=== PATIENT | male | born 1955 | race Caucasian/White ===

== ENCOUNTER 2018-02-23 07:17 | Day surgery (SDC) | payer BC ==
[~2018-02-23] VITALS: Ht 188 cm; Wt 104.3 kg
[2018-02-23] MEDS ORDERED: LACTATED RINGERS 1,000 ML IV STA (07:25)
[2018-02-23] MEDS ORDERED: LACTATED RINGERS 1,000 ML IV ONE (07:26)
[2018-02-23 07:38] VITALS: BP 149/90
[2018-02-23] MEDS ORDERED: MIDAZOLAM 2 MG/2 ML (VERSED) VIAL ONE (07:59)
[2018-02-23] MEDS ORDERED: PROPOFOL INJECTION 50 ML IV ONE (07:59)
--- NOTE | 2018-02-23 09:40 | Progress Note-Post Operative ---
Post-Operative Progess Note Surgeon (s)/Administrative Assistant Coordinator (s) Surgeon ARELI OLIVEROS DO Administrative Assistant Coordinator: na Pre-Operative Diagnosis screening colonoscopy Post-Operative Diagnosis diverticulosis Procedure & Operative Findings Date of Procedure 02/23/18 Procedure Performed/Findings colonoscopy Anesthesia Type per automotive worker foreman Estimated Blood Loss Estimated blood loss (mL): none Specimens/Packing Specimens Removed na ARELI OLIVEROS DO Feb 23, 2018 09:40
--- NOTE | 2018-02-23 09:43 | Discharge Inst-Simple/Standard ---
Discharge Inst-Standard Patient Instructions/Follow Up Plan of Care/Instructions/FU: repeat colonoscopy in 10 years, any issues before that be reevaluated at that time. Activity as Tolerated: Yes Discharge Diet: Regular Diet (high fiber) ARELI OLIVEROS DO Feb 23, 2018 09:43
[2018-02-23 09:55] VITALS: BP 114/62
[2018-02-23 10:20] VITALS: BP 129/96
--- NOTE | 2018-02-23 18:14 | OPERATIVE REPORT ---
DATE OF SERVICE: 02/23/2018 PREOPERATIVE DIAGNOSIS: Screening colonoscopy. POSTOPERATIVE DIAGNOSIS: Diverticulosis. PROCEDURE: Colonoscopy. SURGEON: Areli Mesa DO ANESTHESIA: Per DISABILITY LIAISON OFFICER. ESTIMATED BLOOD LOSS: None. COMPLICATIONS: None. INDICATIONS: The patient is a 62-year-old male due for screening colonoscopy. He understands risks and benefits of the procedure and wished to proceed with the procedure. Consent was signed on the chart. DESCRIPTION OF PROCEDURE: The patient was taken to the endoscopy suite, placed in left lateral recumbent position. Timeout was performed. Digital rectal exam was performed. There were no palpable polyps, masses or ulcerations. The scope was inserted in the rectum and advanced all the way to the cecum with minimal difficulty. Prep was adequate. The scope was then slowly retracted back. There were no polyps, masses or ulcerations within the cecum, ascending, transverse, descending and sigmoid colon. From the transverse colon down to the sigmoid colon, there was a moderate amount of diverticulosis present. Scope once in the rectum was also retroflexed noting no other pathology. The scope was returned to its normal position, slowly withdrawn until completely removed. The patient tolerated the procedure well without any complications and was taken to the recovery room in stable condition. RECOMMENDATIONS: Due to diverticulosis, we would recommend high-fiber diet. He will need a repeat colonoscopy in 10 years unless he has family history of colon cancer or personal history of polyps, which would then be 5 years. If he has any problems prior to that, he should be reevaluated at that time. Job ID: [id number] DocumentID: [id number] Dictated Date: 02/23/2018 09:46:09 Engagement Engineer Date: 02/23/2018 14:49:55 Dictated By: ARELI MESA DO
== END 2018-02-23 10:20 | disposition home or self-care (01) ==
LOC: ENDO 07:17
PROVIDERS: ATTEND Surgery
DX: Z12.11 Encounter for screening for malignant neoplasm of colon (principal); K57.30 Diverticulosis of large intestine without perforation or abscess without bleeding

== ENCOUNTER 2023-01-20 05:28 | Outpatient (CLI) | payer BC ==
[~2023-01-20] VITALS: Ht 182.9 cm; Wt 94.8 kg
[2023-01-20] MEDS ORDERED: ROSU5TAB13 PO (08:15)
[2023-01-20] MEDS ORDERED: LISI20TA26 PO (08:15)
[2023-01-21] MEDS ORDERED: ACHD5005 PO (10:46)
== END 2023-01-20 08:37 | disposition home or self-care (01) ==
LOC: PREOP 05:28
PROVIDERS: ATTEND Surgery
DX: Z01.818 Encounter for other preprocedural examination (principal)

== ENCOUNTER 2023-01-21 08:07 | Day surgery (SDC) | payer BC ==
[~2023-01-21] VITALS: Ht 182.9 cm; Wt 94.8 kg
[2023-01-21] VITALS (8 sets, daily range): BP systolic 114–130; BP diastolic 64–83
[~2023-01-21 08:07] MED LIST: LACTATED RINGERS 1,000 ML IV PRN; LISI20TA26 PO; ROSU5TAB13 PO
[2023-01-21] MEDS ORDERED: ceFAZolin INJECTION 2,000 MG in NS (IVPB) 50 ML IV ONE (08:15)
[2023-01-21] MEDS ORDERED: BUP/EPI 0.25% 1:200,000 (MARCAINE) 30 ML VIAL ONE (08:29)
--- NOTE | 2023-01-21 08:40 | Progress Note-Pre Operative ---
Pre-Operative Progress Note Date of Available H&P: December 30, 2022 Date H&P Reviewed: January 21, 2023 Time H&P Reviewed: 08:40 History & Physical: H&P Reviewed, Patient Examed, No changes noted Pre-Operative Diagnosis: Left chest wall basal cell, site marked ROSE MASTERS DO January 21, 2023 08:40
[2023-01-21] MEDS ORDERED: BUP/EPI 0.25% 1:200,000 (MARCAINE) 30 ML VIAL INJ ONE (09:05)
[2023-01-21] MEDS ORDERED: LIDOCAINE PF 2% 5 ML (XYLOCAINE) VIAL ONE (10:01)
[2023-01-21] MEDS ORDERED: proPOfol 200 MG/20 ML (DIPRIVAN) VIAL IV ONE (10:01)
[2023-01-21] MEDS ORDERED: ONDANSETRON 4 MG/2 ML (SDV) Z0FRAN ONE (10:01)
[2023-01-21] MEDS ORDERED: fentaNYL INJ 100 MCG/2 ML AMP ONE (10:01)
[2023-01-21] MEDS ORDERED: SEVOFLURANE (ULTANE) 15 ML INHAL SOLN ONE (10:33)
[2023-01-21] MEDS ORDERED: ACHD5005 PO (10:46)
--- NOTE | 2023-01-21 10:46 | Progress Note-Post Operative ---
Post-Operative Progess Note Surgeon (s)/Farmworker Poultry (s) Surgeon ROSE MASTERS DO Farmworker Poultry: [employer] student Pre-Operative Diagnosis Left chest wall basal cell, site marked Post-Operative Diagnosis same pending path Procedure & Operative Findings Date of Procedure 01/21/23 Procedure Performed/Findings Excision of Basal Cell CA, appx 9.2 x 3.4 cm excision Anesthesia Type LMA Estimated Blood Loss Estimated blood loss (mL): less than 5ml Specimens/Packing Specimens Removed Left chest wall mass, basal cell ROSE MASTERS DO January 21, 2023 10:46
--- NOTE | 2023-01-21 10:48 | Discharge Inst-Surgical ---
Discharge Inst-Surgical Depart Medication/Instructions New, Converted or Re-Newed RX: Transmitted to Pharmacy Patient Instructions Follow up Appt: Make appointment for 1 week. [phone] Instructions: No lifting greater than 20 pounds. No strenuous activity. May shower in 24 hours, no tub bath or soaking. Use incentive spirometer at home as directed. No Smoking Skin/Wound Care: May remove bandages in am. You need to leave the sutures in place and come to the office to have them removed. Symptoms to Report: Appetite Changes, Extremity Discoloration, Numbness/Tingling, Swelling Increased, Bleeding Excessive, Eyesight Changes, Pain Increased, Urine Color Change, Constipation(Persistent), Fever over 101 degree F, Pain/Pressure in chest, Urinating Difficulty, Cough Up/Vomit Blood, Heart Beat Irreg/Pounding, Pain/Pressure in jaw, Cramps in feet or legs, Lightheadedness, Pain/Pressure in shoulder, Diarrhea(Persistent), Memory Changes Suddenly, Questions/Concerns, Weight gain consecutive days, Dizziness/Fainting, Nausea/Vomiting, Shortness of Breath, Weight gain over 2 pounds If questions or concerns contact your physician Or seek help at emergency department. Activity Activity as Tolerated: Yes Activity Instructions: Avoid Stress to Incision Driving Instructions: No Driving/Refer to Dr. Magallon Discharge Diet: No Restrictions Diet After 24 Hours: Clear Liquid if Nauseous If Any Problems/Questions/Issu: Contact Your Physician, Go to Emergency Room Skin/Wound Care Infection Signs and Symptoms: Increased Redness, Foul Odor of Wound, Increased Drainage, Skin Itchy or Has a Rash, Increased Swelling, Temperature Above 101 F Bathing Instructions: Shower Stitches/Ivette/Dermabond Dis: Care of Stitches ROSE MASTERS DO January 21, 2023 10:48
[2023-01-21] MEDS ORDERED: ONDANSETRON 4 MG/2 ML (SDV) Z0FRAN IVP PRN (11:00)
[2023-01-21] MEDS ORDERED: morphine INJ 10 MG/ML 1ML (SYR OR VIAL) IVP ONE (11:00)
--- NOTE | 2023-01-21 11:01 | Anesthesia-General Post-Op ---
General Patient Condition Mental Status/LOC: Same as Preop Cardiovascular: Satisfactory Nausea/Vomiting: Absent Respiratory: Satisfactory Pain: Controlled Complications: Absent Post Op Complications Complications None Follow Up Care/Instructions Patient Instructions None needed. Anesthesia/Patient Condition Patient Condition Patient is awake in PACU and doing well, no complaints, stable vital signs, no apparent adverse anesthesia problems. No complications reported per nursing. ANTONIO DOMINGUEZ DO January 21, 2023 11:01
--- NOTE | 2023-01-21 19:38 | OPERATIVE REPORT ---
DATE OF SERVICE: 01/21/2023 PREOPERATIVE DIAGNOSIS: Left chest wall basal cell cancer. POSTOPERATIVE DIAGNOSIS: Left chest wall basal cell cancer, pending pathology. PROCEDURE: Excision of left chest wall basal cell cancer approximately 9.2 x 3.4 cm excision. SURGEON: Judah Byrd DO HOGSHEAD COOPER: YAW [employer]in student. ANESTHESIA: LMA. SPECIMENS: Left chest wall mass. BLOOD LOSS: Less than 5 mL. FLUIDS: Per anesthesia. POSTOPERATIVE CONDITION: Stable. INDICATIONS FOR PROCEDURE: The patient is a 67-year-old male who has a basal cell cancer on his left chest and he wanted to get this removed. PROCEDURE NOTE: After informed consent was obtained, the patient was brought to the operating room and placed on the table in supine position, sterilely prepped and draped in normal fashion. This left chest wall mass had been marked prior to going to the OR. A timeout was performed, agreed on the site marking, had drawn an elliptical marking around this mass. This measured about 9.2 cm x about 3.4 cm injected under this along the lines with local lidocaine as well as around the area for regional control. Then, using a #15 blade, made an incision through the skin and down into the subcutaneous tissue, going along these lines and then dissecting under this with Bovie electrocautery to remove this mass. We then marked superiorly with a short stitch and laterally with a long stitch. I then created undermining, about 2 cm of undermining on either side to be able to bring the skin together. Hemostasis obtained using Bovie electrocautery, closed the incision with four vertical mattress sutures and then in between each of the sutures, simple sutures, placed about 11 simple sutures. Area was cleaned and dried, pressure dressing placed. The patient tolerated the procedure. Sponge and needle count correct at the end of the case. Job ID: [id number] DocumentID: [id number] Dictated Date: 01/21/2023 11:36:17 Executive Consultant Date: 01/21/2023 19:36:00 Dictated By: JUDAH BYRD DO [facility]
--- NOTE | 2023-01-29 12:25 | Progress Note ---
Standard Progress Note Progress Notes/Assess & Plan Date Seen by a Provider: January 21, 2023 Time Seen by a Provider: 10:41 Progress/Assessment & Plan Addendum to Anesthesia Record: Procedure: Wide Excision Left Chest Wall Basal Cell Carcinoma ANTONIO DOMINGUEZ DO Jan 29, 2023 12:25
== END 2023-01-21 12:05 ==
LOC: SDC 08:07
PROVIDERS: ATTEND Surgery
DX: C44.519 Basal cell carcinoma of skin of other part of trunk (principal)
CPT/HCPCS: 87081